=== PATIENT | male | born 1950 | race Caucasian/White ===

== ENCOUNTER 2020-08-01 15:21 | Observation (INO) ==
[~2020-08-01 15:21] MED LIST: PNEUMOCOCCAL VACCINE (13 VALENT) 0.5 ML SYRINGE IM ONE
[2020-08-01 16:18] LABS: Basophils # 0.1 10*3/uL (0.0-0.2); Basophils % 0.5 % (0.0-0.8); Eosinophils # 0.1 10*3/uL (0.0-0.87); Eosinophils % 0.6 % (0.00-10.9); Hematocrit 50.6 VOL% (42.0-52.0); Hemoglobin 16.7 GM/DL (14.0-18.0); Immature Granulocytes % 1.2 %; Immature Granulocytes Absolute 0.11 #; Lymphocytes % 10.6 % (21.2-54.2); Mean Corpuscular Volume 96.7 FL (87-102); Mean Platelet Volume 10.2 FL (9.6-12.0); Monocytes % 9.1 % (1.7-12.7); Platelet Count 300 T/CUMM (130-400); Red Blood Count 5.23 MC/CUMM (3.8-5.5); Red Cell Distribution Width 12.7 % (9.3-17.3); White Blood Count 9.3 T/CUMM (4-12)
[2020-08-01] MEDS ORDERED: ALBUTEROL/IPRATROPIUM 3 ML NEB RESP TX STA (16:18)
[2020-08-01] MEDS ORDERED: methylPREDNISolone SOD SUC 125 MG/2 ML VIAL IV STA (16:18)
[2020-08-01] MEDS ORDERED: SODIUM CHLORIDE 0.9% 500 ML IV STA (16:18)
[2020-08-01] MEDS ORDERED: PIPERACILLIN/TAZOBACTAM 3,375 MG in SODIUM CHLORIDE 0.9% 100 ML IV STA (16:18)
[2020-08-01 16:38] LABS: Albumin 3.4 G/DL (3.4-5.0); Bilirubin,Total 1.4 MG/DL (0.2-1.0); Calcium 9.7 MG/DL (8.5-10.1); Osmolality,Calculated 269.1 MOS/KG (273-304); Total Protein 8.3 G/DL (6.4-8.3)
[2020-08-01 16:52] LABS: Bilirubin,Urine Negative (Negative); Blood, Urine Small mg/dL (Negative); Glucose,Urine (UA) Negative (Negative); Ketones,Urine Negative (Negative); Nitrite,Urine Negative (Negative); Protein,Urine Negative; RBC,Urine 1 /HPF (0-4); Urine Appearance CLEAR (Clear); Urine Color Straw (Yellow); Urine Specific Gravity 1.004 (1.001-1.035); Urine Urobilinogen < 2.0 EU/DL (0.2-1.0)
[2020-08-02] MEDS: PIPERACILLIN/TAZOBACTAM 3,375 MG in SODIUM CHLORIDE 0.9% 100 ML IV SCH ×3 (02:50→17:37)
[2020-08-02 08:47] LABS: Lymphocytes,Pleural Fluid 97 %; Monocytes,Pleural Fluid 2 %; Neutrophils,Pleural Fluid 1 %
[2020-08-02 08:50] LABS: RBC,Pleural Fluid 4923 T/CUMM
[2020-08-02 08:54] LABS: Glucose,Pleural Fluid 124 MG/DL; LDH,Body Fluid 360 U/L; Total Protein,Body Fluid 5.2 G/DL; Triglycerides,Body Fluid < 8 MG/DL
[2020-08-02] MEDS: THIAMINE 100 MG TABLET PO SCH (09:17)
[2020-08-02] MEDS: MULTIVITAMIN (CENTRUM) TABLET PO SCH (09:17)
[2020-08-02] MEDS ORDERED: INFLUENZA VIRUS VACCINE 0.5 ML SYRINGE IM ONE (09:30)
[2020-08-02] MEDS: FOLIC ACID 1 MG TABLET PO SCH (09:36)
[2020-08-02] MEDS: LORazepam 2 MG/1 ML VIAL IV PRN (22:56)
[2020-08-03] MEDS: PIPERACILLIN/TAZOBACTAM 3,375 MG in SODIUM CHLORIDE 0.9% 100 ML IV SCH ×2 (02:36→09:31)
[2020-08-03 05:43] LABS: Basophils % 0.5 % (0.0-0.8); Eosinophils # 0.1 10*3/uL (0.0-0.87); Eosinophils % 0.9 % (0.00-10.9); Hematocrit 45.5 VOL% (42.0-52.0); Immature Granulocytes % 1.1 %; Immature Granulocytes Absolute 0.08 #; Lymphocytes # 0.9 10*3/uL (1.4-4.0); Lymphocytes % 11.4 % (21.2-54.2); Mean Corpuscular Volume 95.6 FL (87-102); Monocytes % 9.7 % (1.7-12.7); Neutrophils % 76.4 % (38.7-73.9); Platelet Count 287 T/CUMM (130-400); Red Blood Count 4.76 MC/CUMM (3.8-5.5); Red Cell Distribution Width 12.5 % (9.3-17.3); White Blood Count 7.5 T/CUMM (4-12)
[2020-08-03 05:55] LABS: Calcium 8.8 MG/DL (8.5-10.1); Osmolality,Calculated 274.8 MOS/KG (273-304)
[2020-08-03] MEDS: LORazepam 2 MG/1 ML VIAL IV PRN ×2 (09:30→21:46)
[2020-08-03] MEDS: MULTIVITAMIN (CENTRUM) TABLET PO SCH (09:31)
[2020-08-03] MEDS: FOLIC ACID 1 MG TABLET PO SCH (09:31)
[2020-08-03] MEDS: THIAMINE 100 MG TABLET PO SCH (09:31)
[2020-08-03] MEDS: cefTRIAXone 1,000 MG in SYRINGE 1 EACH IV SCH (12:15)
[2020-08-03] MEDS: DOCUSATE SODIUM 100 MG CAPSULE PO SCH (12:21)
[2020-08-03] MEDS: AZITHROMYCIN 250 MG TABLET PO SCH (12:21)
[2020-08-03] MEDS: HYDROcodone/HOMATROPINE 5 ML UDCUP PO PRN (19:16)
[2020-08-04 05:52] LABS: Basophils # 0.1 10*3/uL (0.0-0.2); Basophils % 0.6 % (0.0-0.8); Eosinophils # 0.1 10*3/uL (0.0-0.87); Eosinophils % 1.4 % (0.00-10.9); Hematocrit 43.9 VOL% (42.0-52.0); Hemoglobin 14.5 GM/DL (14.0-18.0); Immature Granulocytes % 1.1 %; Mean Corpuscular Volume 96.1 FL (87-102); Mean Platelet Volume 10.1 FL (9.6-12.0); Monocytes % 10.8 % (1.7-12.7); Neutrophils % 75.1 % (38.7-73.9); Platelet Count 259 T/CUMM (130-400); Red Blood Count 4.57 MC/CUMM (3.8-5.5); Red Cell Distribution Width 12.4 % (9.3-17.3); White Blood Count 8.7 T/CUMM (4-12)
[2020-08-04 06:48] LABS: Calcium 8.7 MG/DL (8.5-10.1); Osmolality,Calculated 271.8 MOS/KG (273-304)
[2020-08-04 07:21] LABS: Hepatitis B Core IgM Quant 0.18 Index; Hepatitis B Surface Ag Quant < 0.10 Index; Hepatitis B Surface Ag Result Negative (Negative); Hepatitis C Virus Ab Quant 0.06 Index; Hepatitis C Virus Ab Result Negative (Negative)
[2020-08-04] MEDS: cefTRIAXone 1,000 MG in SYRINGE 1 EACH IV SCH (09:11)
[2020-08-04] MEDS ORDERED: fentaNYL 100 MCG/2 ML VIAL ONE (10:16)
[2020-08-04] MEDS ORDERED: KETAMINE 500 MG/10 ML VIAL ONE (10:16)
[2020-08-04] MEDS ORDERED: MIDAZOLAM 2 MG/2 ML VIAL ONE (10:16)
[2020-08-04] MEDS ORDERED: LIDOCAINE 1%/EPI INJ 20 ML VIAL ONE (10:45)
[2020-08-04] MEDS ORDERED: TISSUE ADHESIVE 1 EACH APPLICATOR TOP ONE (11:21)
[2020-08-04] MEDS ORDERED: ETOMIDATE 40 MG/20 ML VIAL IV ONE (11:21)
[2020-08-04] MEDS ORDERED: LIDOCAINE 2% 5 ML VIAL ONE (11:21)
[2020-08-04] MEDS ORDERED: propofoL 200 MG/20 ML VIAL IV ONE (11:21)
[2020-08-04] MEDS: AZITHROMYCIN 250 MG TABLET PO SCH (12:49)
[2020-08-04] MEDS: MULTIVITAMIN (CENTRUM) TABLET PO SCH (12:49)
[2020-08-04] MEDS: THIAMINE 100 MG TABLET PO SCH (12:49)
[2020-08-04] MEDS: FOLIC ACID 1 MG TABLET PO SCH (12:50)
[2020-08-04] MEDS: DOCUSATE SODIUM 100 MG CAPSULE PO SCH (12:50)
[2020-08-04] MEDS: HYDROcodone/HOMATROPINE 5 ML UDCUP PO PRN ×2 (18:54→22:51)
[2020-08-05 04:46] LABS: Basophils % 0.5 % (0.0-0.8); Eosinophils # 0.1 10*3/uL (0.0-0.87); Eosinophils % 1.3 % (0.00-10.9); Hematocrit 46.4 VOL% (42.0-52.0); Hemoglobin 14.8 GM/DL (14.0-18.0); Immature Granulocytes % 0.8 %; Immature Granulocytes Absolute 0.07 #; Lymphocytes # 0.9 10*3/uL (1.4-4.0); Lymphocytes % 10.2 % (21.2-54.2); Mean Corpuscular HGB Conc 31.9 GM/DL (32-36); Mean Corpuscular Volume 97.3 FL (87-102); Mean Platelet Volume 10.1 FL (9.6-12.0); Monocytes % 9.2 % (1.7-12.7); Platelet Count 293 T/CUMM (130-400); Red Blood Count 4.77 MC/CUMM (3.8-5.5); Red Cell Distribution Width 12.5 % (9.3-17.3); White Blood Count 8.5 T/CUMM (4-12)
[2020-08-05 05:08] LABS: Calcium 8.7 MG/DL (8.5-10.1); Osmolality,Calculated 272.8 MOS/KG (273-304)
[2020-08-05 08:19] VITALS: BP 127/92
[2020-08-05] MEDS: AZITHROMYCIN 250 MG TABLET PO SCH (08:31)
[2020-08-05] MEDS: THIAMINE 100 MG TABLET PO SCH (08:32)
[2020-08-05] MEDS: MULTIVITAMIN (CENTRUM) TABLET PO SCH (08:32)
[2020-08-05] MEDS: DOCUSATE SODIUM 100 MG CAPSULE PO SCH (08:32)
[2020-08-05] MEDS: FOLIC ACID 1 MG TABLET PO SCH (08:32)
[2020-08-05] MEDS: cefTRIAXone 1,000 MG in SYRINGE 1 EACH IV SCH (08:41)
== END 2020-08-05 10:59 | disposition home or self-care (01) ==
LOC: N.ED 15:21 → N.EDINP 15:21 → SUATTDRO 20:44 → N.5E 21:04
PROVIDERS: ADMIT Hospitalist; ATTEND Family Medicine

== ENCOUNTER 2020-08-15 18:42 | Inpatient (IN) ==
[2020-08-15] MEDS ORDERED: ACETAMINOPHEN 500 MG TABLET PO STA (19:31)
[2020-08-15] MEDS ORDERED: PIPERACILLIN/TAZOBACTAM 3,375 MG in SODIUM CHLORIDE 0.9% 100 ML IV STA (19:31)
[2020-08-15 19:54] LABS: Basophils % 0.1 % (0.0-0.8); Eosinophils % 0.2 % (0.00-10.9); Hematocrit 47.2 VOL% (42.0-52.0); Hemoglobin 15.7 GM/DL (14.0-18.0); Immature Granulocytes % 0.6 %; Lymphocytes # 0.2 10*3/uL (1.4-4.0); Lymphocytes % 1.3 % (21.2-54.2); Mean Corpuscular HGB Conc 33.3 GM/DL (32-36); Mean Corpuscular Volume 93.8 FL (87-102); Monocytes % 4.8 % (1.7-12.7); Platelet Count 347 T/CUMM (130-400); Red Blood Count 5.03 MC/CUMM (3.8-5.5); Red Cell Distribution Width 12.8 % (9.3-17.3); White Blood Count 16.3 T/CUMM (4-12)
[2020-08-15 20:03] LABS: INR 1.1; PT Patient Result 11.6 SECS (9.8-11.9)
[2020-08-15 20:21] LABS: Lymphocytes 1 % (20-55); Platelet Estimate Adequate; Segmented Neutrophils 95 % (50-85); Total Cells Counted 100
[2020-08-15] MEDS ORDERED: ALBUTEROL/IPRATROPIUM 3 ML NEB RESP TX STA (20:23)
[2020-08-15 20:25] LABS: Albumin 2.7 G/DL (3.4-5.0); Calcium 9.3 MG/DL (8.5-10.1); Osmolality,Calculated 271.1 MOS/KG (273-304); Total Protein 7.5 G/DL (6.4-8.3)
[2020-08-16] MEDS ORDERED: ALBUTEROL/IPRATROPIUM 3 ML NEB RESP TX PRN (00:23)
[2020-08-16] MEDS ORDERED: DEXTROSE 50% 25 GM/50 ML VIAL IV PRN (01:30)
[2020-08-16] MEDS ORDERED: ACETAMINOPHEN 325 MG TABLET PO PRN (01:30)
[2020-08-16] MEDS ORDERED: GLUCAGON 1 MG VIAL IM PRN (01:30)
[2020-08-16] MEDS ORDERED: ONDANSETRON 4 MG/2 ML VIAL IV PRN (01:30)
[2020-08-16] MEDS ORDERED: DOCUSATE SODIUM 100 MG CAPSULE PO PRN (01:37)
[2020-08-16] MEDS: PIPERACILLIN/TAZOBACTAM 3,375 MG in SODIUM CHLORIDE 0.9% 100 ML IV SCH ×3 (03:25→23:11)
[2020-08-16] MEDS ORDERED: DIGOXIN 0.5 MG/2 ML AMP IV ONE ×2 (05:04→11:05)
[2020-08-16 06:34] LABS: Basophils % 0.1 % (0.0-0.8); Eosinophils % 0.2 % (0.00-10.9); Hematocrit 47.7 VOL% (42.0-52.0); Hemoglobin 15.4 GM/DL (14.0-18.0); Immature Granulocytes % 0.7 %; Immature Granulocytes Absolute 0.09 #; Lymphocytes # 0.2 10*3/uL (1.4-4.0); Lymphocytes % 1.6 % (21.2-54.2); Mean Corpuscular HGB Conc 32.3 GM/DL (32-36); Mean Corpuscular Volume 96.4 FL (87-102); Mean Platelet Volume 10.5 FL (9.6-12.0); Monocytes % 5.2 % (1.7-12.7); Neutrophils % 92.2 % (38.7-73.9); Platelet Count 310 T/CUMM (130-400); Red Blood Count 4.95 MC/CUMM (3.8-5.5); Red Cell Distribution Width 12.8 % (9.3-17.3); White Blood Count 13.4 T/CUMM (4-12)
[2020-08-16 06:52] LABS: Albumin 2.5 G/DL (3.4-5.0); Bilirubin,Total 1.1 MG/DL (0.2-1.0); Calcium 9.3 MG/DL (8.5-10.1); Osmolality,Calculated 273.8 MOS/KG (273-304); Total Protein 7.2 G/DL (6.4-8.3)
[2020-08-16 07:02] LABS: Hypochromasia 1+; Lymphocytes 1 % (20-55); Microcytosis Slight; Segmented Neutrophils 92 % (50-85); Total Cells Counted 100
[2020-08-16 07:03] LABS: Platelet Estimate Normal
[2020-08-16] MEDS: ALPRAZolam 0.5 MG TABLET PO SCH ×3 (08:54→23:10)
[2020-08-16] MEDS: methylPREDNISolone SOD SUC 40 MG/1 ML VIAL IV SCH ×2 (10:20→23:10)
[2020-08-16] MEDS: LEVOFLOXACIN INJ 750 MG in PREMIX 1 EACH IV SCH (10:21)
[2020-08-16] MEDS: MULTIVITAMIN (CENTRUM) TABLET PO SCH (10:32)
[2020-08-16] MEDS: allopurinoL 100 MG TABLET PO SCH (10:32)
[2020-08-16] MEDS: FOLIC ACID 1 MG TABLET PO SCH (10:32)
[2020-08-16] MEDS: THIAMINE 100 MG TABLET PO SCH (10:32)
[2020-08-16] MEDS: METOPROLOL TARTRATE 25 MG TABLET PO SCH ×2 (10:33→23:11)
[2020-08-16] MEDS: ASCORBIC ACID 500 MG TABLET PO SCH ×2 (12:01→23:11)
[2020-08-16] MEDS: ASPIRIN EC 81 MG TABLET PO SCH (15:59)
[2020-08-17] MEDS: PIPERACILLIN/TAZOBACTAM 3,375 MG in SODIUM CHLORIDE 0.9% 100 ML IV SCH ×3 (04:33→21:20)
[2020-08-17 05:40] LABS: Basophils % 0.2 % (0.0-0.8); Eosinophils % 0.1 % (0.00-10.9); Hematocrit 43.8 VOL% (42.0-52.0); Immature Granulocytes % 1.1 %; Immature Granulocytes Absolute 0.17 #; Lymphocytes # 0.1 10*3/uL (1.4-4.0); Lymphocytes % 0.9 % (21.2-54.2); Mean Corpuscular Volume 96.9 FL (87-102); Mean Platelet Volume 10.3 FL (9.6-12.0); Monocytes % 6.6 % (1.7-12.7); Neutrophils % 91.1 % (38.7-73.9); Platelet Count 323 T/CUMM (130-400); Red Blood Count 4.52 MC/CUMM (3.8-5.5); Red Cell Distribution Width 12.7 % (9.3-17.3); White Blood Count 15.7 T/CUMM (4-12)
[2020-08-17 06:03] LABS: Albumin 2.1 G/DL (3.4-5.0); Bilirubin,Total 0.8 MG/DL (0.2-1.0); Osmolality,Calculated 275.8 MOS/KG (273-304); Total Protein 6.6 G/DL (6.4-8.3)
[2020-08-17 06:09] LABS: Lymphocytes 1 % (20-55); Platelet Estimate Adequate; Segmented Neutrophils 94 % (50-85); Total Cells Counted 100
[2020-08-17] MEDS: ASCORBIC ACID 500 MG TABLET PO SCH ×2 (08:59→21:21)
[2020-08-17] MEDS: ALPRAZolam 0.5 MG TABLET PO SCH ×3 (08:59→21:22)
[2020-08-17] MEDS: FOLIC ACID 1 MG TABLET PO SCH (08:59)
[2020-08-17] MEDS: allopurinoL 100 MG TABLET PO SCH (09:00)
[2020-08-17] MEDS: MULTIVITAMIN (CENTRUM) TABLET PO SCH (09:00)
[2020-08-17] MEDS: THIAMINE 100 MG TABLET PO SCH (09:00)
[2020-08-17] MEDS: methylPREDNISolone SOD SUC 40 MG/1 ML VIAL IV SCH ×2 (09:00→21:21)
[2020-08-17] MEDS: METOPROLOL TARTRATE 25 MG TABLET PO SCH ×2 (09:00→21:22)
[2020-08-17] MEDS: ASPIRIN EC 81 MG TABLET PO SCH (09:00)
[2020-08-17] MEDS: LEVOFLOXACIN INJ 750 MG in PREMIX 1 EACH IV SCH (09:03)
[2020-08-17] MEDS ORDERED: FUROSEMIDE 40 MG/4 ML VIAL IV ONE (17:23)
[2020-08-18] MEDS: PIPERACILLIN/TAZOBACTAM 3,375 MG in SODIUM CHLORIDE 0.9% 100 ML IV SCH ×3 (03:15→20:17)
[2020-08-18] MEDS: ALPRAZolam 0.5 MG TABLET PO SCH ×3 (09:11→20:09)
[2020-08-18] MEDS: LEVOFLOXACIN INJ 750 MG in PREMIX 1 EACH IV SCH (09:12)
[2020-08-18] MEDS: methylPREDNISolone SOD SUC 40 MG/1 ML VIAL IV SCH ×2 (09:13→20:23)
[2020-08-18] MEDS: allopurinoL 100 MG TABLET PO SCH (09:14)
[2020-08-18] MEDS: METOPROLOL TARTRATE 25 MG TABLET PO SCH ×2 (09:14→20:10)
[2020-08-18] MEDS: FOLIC ACID 1 MG TABLET PO SCH (09:15)
[2020-08-18] MEDS: ASPIRIN EC 81 MG TABLET PO SCH (09:15)
[2020-08-18] MEDS: THIAMINE 100 MG TABLET PO SCH (09:15)
[2020-08-18] MEDS: MULTIVITAMIN (CENTRUM) TABLET PO SCH (09:15)
[2020-08-18] MEDS: ASCORBIC ACID 500 MG TABLET PO SCH ×2 (09:15→20:11)
[2020-08-18] MEDS ORDERED: BENZONATATE 100 MG CAPSULE PO PRN (14:35)
[2020-08-18] MEDS ORDERED: MIDAZOLAM 2 MG/2 ML VIAL IV ONE (15:31)
[2020-08-18] MEDS ORDERED: fentaNYL 100 MCG/2 ML VIAL IV ONE (15:31)
[2020-08-19] MEDS: PIPERACILLIN/TAZOBACTAM 3,375 MG in SODIUM CHLORIDE 0.9% 100 ML IV SCH ×2 (04:02→11:45)
[2020-08-19] MEDS ORDERED: SODIUM CHLORIDE 0.45% 1,000 ML IV SCH (08:30)
[2020-08-19] MEDS ORDERED: ceFAZolin 1,000 MG in SYRINGE 1 EACH IV ONE (08:30)
[2020-08-19] MEDS ORDERED: DIAZEPAM 5 MG TABLET PO ONE (08:30)
[2020-08-19] MEDS: LEVOFLOXACIN INJ 750 MG in PREMIX 1 EACH IV SCH (08:48)
[2020-08-19] MEDS: methylPREDNISolone SOD SUC 40 MG/1 ML VIAL IV SCH (08:49)
[2020-08-19] MEDS ORDERED: MIDAZOLAM 2 MG/2 ML VIAL ONE (09:36)
[2020-08-19] MEDS ORDERED: fentaNYL 100 MCG/2 ML VIAL ONE (09:36)
[2020-08-19] MEDS: METOPROLOL TARTRATE 25 MG TABLET PO SCH (09:51)
[2020-08-19] MEDS: ALPRAZolam 0.5 MG TABLET PO SCH (09:52)
[2020-08-19] MEDS: ASCORBIC ACID 500 MG TABLET PO SCH (09:52)
[2020-08-19] MEDS ORDERED: TISSUE ADHESIVE 1 EACH APPLICATOR TOP ONE (10:29)
[2020-08-19] MEDS: FOLIC ACID 1 MG TABLET PO SCH (11:44)
[2020-08-19] MEDS: ASPIRIN EC 81 MG TABLET PO SCH (11:44)
[2020-08-19] MEDS: allopurinoL 100 MG TABLET PO SCH (11:44)
[2020-08-19] MEDS: MULTIVITAMIN (CENTRUM) TABLET PO SCH (11:44)
[2020-08-19] MEDS: THIAMINE 100 MG TABLET PO SCH (11:44)
[2020-08-19 12:03] VITALS: BP 140/84
== END 2020-08-19 14:50 | disposition home or self-care (01) | DRG 840 ==
LOC: N.ED 18:42 → N.EDINP 23:07 → N.TELEN 23:20
PROVIDERS: ADMIT Internal Medicine; ATTEND Internal Medicine

== ENCOUNTER 2021-07-16 22:20 | Inpatient (IN) ==
[2021-07-16 22:50] LABS: Basophils % 0.2 % (0.0-0.8); Eosinophils # 0.2 10*3/uL (0.0-0.87); Hematocrit 40.6 VOL% (42.0-52.0); Hemoglobin 12.9 GM/DL (14.0-18.0); Immature Granulocytes % 4.5 %; Immature Granulocytes Absolute 0.18 #; Lymphocytes # 0.6 10*3/uL (1.4-4.0); Lymphocytes % 14.7 % (21.2-54.2); Mean Corpuscular HGB Conc 31.8 GM/DL (32-36); Mean Corpuscular Volume 91.2 FL (87-102); Mean Platelet Volume 9.4 FL (9.6-12.0); Monocytes % 10.5 % (1.7-12.7); Neutrophils % 65.1 % (38.7-73.9); Platelet Count 182 T/CUMM (130-400); Red Blood Count 4.45 MC/CUMM (3.8-5.5); Red Cell Distribution Width 13.3 % (9.3-17.3)
[2021-07-16 23:04] LABS: Albumin 3.5 G/DL (3.4-5.0); Bilirubin,Total 0.6 MG/DL (0.20-1.00); Calcium 9.3 MG/DL (8.5-10.1); Osmolality,Calculated 267.4 MOS/KG (273-304); Potassium 4.2 MMOL/L (3.5-5.1); Total Protein 6.4 G/DL (6.4-8.2)
[2021-07-16] MEDS ORDERED: VANCOMYCIN INJ 1,500 MG in SODIUM CHLORIDE 0.9% 500 ML IV STA (23:38)
[2021-07-16] MEDS ORDERED: CEFEPIME 2,000 MG in SODIUM CHLORIDE 0.9% 100 ML IV STA (23:38)
[2021-07-17] MEDS ORDERED: SODIUM CHLORIDE 0.9% 500 ML IV STA (00:26)
[2021-07-17 01:03] LABS: Bilirubin,Urine Negative (Negative); Blood, Urine Negative (Negative); Glucose,Urine (UA) Negative (Negative); Ketones,Urine Negative (Negative); Nitrite,Urine Negative (Negative); Protein,Urine Negative; RBC,Urine <1 /HPF (0-4); Urine Appearance CLEAR (Clear); Urine Color Straw (Yellow); Urine Specific Gravity 1.031 (1.001-1.035); Urine Urobilinogen < 2.0 EU/DL (0.2-1.0)
[2021-07-17] MEDS ORDERED: GLUCAGON 1 MG VIAL IM PRN (01:41)
[2021-07-17] MEDS ORDERED: ONDANSETRON 4 MG/2 ML VIAL IV PRN (01:41)
[2021-07-17] MEDS ORDERED: DEXTROSE 50% 25 GM/50 ML VIAL IV PRN (01:41)
[2021-07-17 01:58] LABS: Band Neutrophils 4 % (0-10); Eosinophils 6 % (0-10); Lymphocytes 12 % (20-55); Segmented Neutrophils 69 % (50-85)
[2021-07-17 01:59] LABS: Hypochromasia 1+; Ovalocytes 1+; Platelet Estimate Normal
[2021-07-17 02:00] LABS: Total Cells Counted 100
[2021-07-17 02:45] LABS: Basophils % 0.4 % (0.0-0.8); Eosinophils # 0.1 10*3/uL (0.0-0.87); Eosinophils % 4.6 % (0.00-10.9); Hemoglobin 12.2 GM/DL (14.0-18.0); Immature Granulocytes % 2.3 %; Immature Granulocytes Absolute 0.06 #; Lymphocytes # 0.5 10*3/uL (1.4-4.0); Lymphocytes % 19.8 % (21.2-54.2); Mean Corpuscular HGB Conc 32.1 GM/DL (32-36); Mean Corpuscular Volume 91.8 FL (87-102); Mean Platelet Volume 10.3 FL (9.6-12.0); Monocytes % 9.1 % (1.7-12.7); Neutrophils % 63.8 % (38.7-73.9); Platelet Count 184 T/CUMM (130-400); Red Blood Count 4.14 MC/CUMM (3.8-5.5); Red Cell Distribution Width 13.3 % (9.3-17.3); White Blood Count 2.6 T/CUMM (4-12)
[2021-07-17 03:19] LABS: Calcium 8.1 MG/DL (8.5-10.1); Osmolality,Calculated 268.1 MOS/KG (273-304); Potassium 5.4 MMOL/L (3.5-5.1)
[2021-07-17 03:36] LABS: Band Neutrophils 2 % (0-10); Eosinophils 4 % (0-10); Lymphocytes 17 % (20-55); Platelet Estimate Adequate; Segmented Neutrophils 73 % (50-85); Total Cells Counted 100
[2021-07-17 03:37] LABS: Hypochromasia Slight; Microcytosis Slight
[2021-07-17] MEDS: FLUCONAZOLE INJ 200 MG/100 ML PREMIX IV SCH (05:45)
[2021-07-17] MEDS ORDERED: FUROSEMIDE 40 MG/4 ML VIAL IV ONE (09:00)
[2021-07-17] MEDS: PANTOPRAZOLE 40 MG TABLET PO SCH (09:15)
[2021-07-17] MEDS: CEFEPIME 1,000 MG in SODIUM CHLORIDE 0.9% 100 ML IV SCH ×2 (09:15→21:07)
[2021-07-17] MEDS: VANCOMYCIN INJ 1,500 MG in SODIUM CHLORIDE 0.9% 500 ML IV SCH (13:56)
[2021-07-17] MEDS ORDERED: oxyCODONE IR 5 MG TABLET PO PRN (17:12)
[2021-07-17] MEDS ORDERED: BENZONATATE 100 MG CAPSULE PO PRN (17:12)
[2021-07-17] MEDS: GABAPENTIN 300 MG CAPSULE PO SCH (20:55)
[2021-07-17] MEDS: ACETAMINOPHEN 325 MG TABLET PO PRN (21:05)
[2021-07-17] MEDS: fentaNYL 25 MCG/HR PATCH TRANSDERM SCH (21:07)
[2021-07-17] MEDS: metroNIDAZOLE INJ 500 MG/100 ML PREMIX IV SCH (23:33)
[2021-07-18] MEDS: VANCOMYCIN INJ 1,500 MG in SODIUM CHLORIDE 0.9% 500 ML IV SCH ×2 (01:22→16:06)
[2021-07-18] MEDS ORDERED: FUROSEMIDE 20 MG/2 ML VIAL IV ONE ×2 (02:40→16:30)
[2021-07-18] MEDS: CEFEPIME 1,000 MG in SODIUM CHLORIDE 0.9% 100 ML IV SCH ×3 (05:23→16:06)
[2021-07-18] MEDS: FLUCONAZOLE INJ 200 MG/100 ML PREMIX IV SCH (05:23)
[2021-07-18] MEDS: metroNIDAZOLE INJ 500 MG/100 ML PREMIX IV SCH ×2 (05:24→15:30)
[2021-07-18 06:49] LABS: Basophils % 0.5 % (0.0-0.8); Eosinophils # 0.2 10*3/uL (0.0-0.87); Eosinophils % 4.7 % (0.00-10.9); Hematocrit 39.4 VOL% (42.0-52.0); Hemoglobin 12.5 GM/DL (14.0-18.0); Immature Granulocytes % 4.4 %; Immature Granulocytes Absolute 0.18 #; Lymphocytes # 0.5 10*3/uL (1.4-4.0); Lymphocytes % 13.3 % (21.2-54.2); Mean Corpuscular HGB Conc 31.7 GM/DL (32-36); Mean Corpuscular Volume 91.4 FL (87-102); Mean Platelet Volume 9.7 FL (9.6-12.0); Monocytes % 10.6 % (1.7-12.7); Neutrophils % 66.5 % (38.7-73.9); Platelet Count 180 T/CUMM (130-400); Red Blood Count 4.31 MC/CUMM (3.8-5.5); Red Cell Distribution Width 13.3 % (9.3-17.3); White Blood Count 4.1 T/CUMM (4-12)
[2021-07-18 07:11] LABS: Band Neutrophils 1 % (0-10); Eosinophils 3 % (0-10); Lymphocytes 13 % (20-55); Platelet Estimate Adequate; Segmented Neutrophils 75 % (50-85); Total Cells Counted 100
[2021-07-18 07:24] LABS: Calcium 8.8 MG/DL (8.5-10.1); Osmolality,Calculated 271.8 MOS/KG (273-304); Potassium 3.5 MMOL/L (3.5-5.1)
[2021-07-18] MEDS: GABAPENTIN 300 MG CAPSULE PO SCH ×2 (09:44→20:54)
[2021-07-18] MEDS: PANTOPRAZOLE 40 MG TABLET PO SCH (09:45)
[2021-07-18] MEDS: DOCUSATE SODIUM 100 MG CAPSULE PO SCH (09:45)
[2021-07-18] MEDS: CHOLECALCIFEROL 1,000 UNIT TABLET PO SCH (09:46)
[2021-07-18] MEDS: valACYclovir 500 MG TABLET PO SCH (09:46)
[2021-07-18] MEDS: MULTIVITAMIN (CENTRUM) TABLET PO SCH (09:46)
[2021-07-18] MEDS: METOPROLOL TARTRATE 25 MG TABLET PO SCH (09:47)
[2021-07-18 10:39] LABS: INR 1.1; PT Patient Result 12.4 SECS (10.5-12.0)
[2021-07-18] MEDS: ASPIRIN EC 81 MG TABLET PO SCH (13:38)
[2021-07-18] MEDS: FUROSEMIDE 20 MG/2 ML VIAL IV PRN (16:22)
[2021-07-18] MEDS: ACETAMINOPHEN 325 MG TABLET PO PRN (19:44)
[2021-07-18] MEDS: cefTRIAXone 2,000 MG in SODIUM CHLORIDE 0.9% 100 ML IV SCH (20:54)
[2021-07-18] MEDS: SULFAMETHOX/TRIMETHOPRIM 800-160 MG TABLET PO SCH (20:54)
[2021-07-19] MEDS: FLUCONAZOLE INJ 200 MG/100 ML PREMIX IV SCH (02:37)
[2021-07-19] MEDS: FUROSEMIDE 20 MG/2 ML VIAL IV PRN (04:20)
[2021-07-19 06:11] LABS: Basophils % 0.5 % (0.0-0.8); Eosinophils # 0.2 10*3/uL (0.0-0.87); Hematocrit 40.9 VOL% (42.0-52.0); Hemoglobin 13.1 GM/DL (14.0-18.0); Immature Granulocytes % 3.1 %; Immature Granulocytes Absolute 0.12 #; Lymphocytes # 0.8 10*3/uL (1.4-4.0); Lymphocytes % 19.6 % (21.2-54.2); Mean Corpuscular Volume 93.2 FL (87-102); Mean Platelet Volume 9.9 FL (9.6-12.0); Monocytes % 10.5 % (1.7-12.7); Neutrophils % 61.3 % (38.7-73.9); Platelet Count 199 T/CUMM (130-400); Red Blood Count 4.39 MC/CUMM (3.8-5.5); Red Cell Distribution Width 13.5 % (9.3-17.3); White Blood Count 3.8 T/CUMM (4-12)
[2021-07-19 06:23] LABS: Calcium 9.1 MG/DL (8.5-10.1); Osmolality,Calculated 271.8 MOS/KG (273-304); Potassium 3.5 MMOL/L (3.5-5.1)
[2021-07-19] MEDS: MULTIVITAMIN (CENTRUM) TABLET PO SCH (08:06)
[2021-07-19] MEDS: ASPIRIN EC 81 MG TABLET PO SCH (08:06)
[2021-07-19] MEDS: DOCUSATE SODIUM 100 MG CAPSULE PO SCH (08:06)
[2021-07-19] MEDS: GABAPENTIN 300 MG CAPSULE PO SCH ×2 (08:07→19:37)
[2021-07-19] MEDS: CHOLECALCIFEROL 1,000 UNIT TABLET PO SCH (08:07)
[2021-07-19] MEDS: METOPROLOL TARTRATE 25 MG TABLET PO SCH (08:07)
[2021-07-19] MEDS: valACYclovir 500 MG TABLET PO SCH (08:07)
[2021-07-19] MEDS: SULFAMETHOX/TRIMETHOPRIM 800-160 MG TABLET PO SCH ×2 (08:08→19:37)
[2021-07-19] MEDS: PANTOPRAZOLE 40 MG TABLET PO SCH (08:08)
[2021-07-19] MEDS ORDERED: DOXYCYCLINE HYCLATE INJ 200 MG, LIDOCAINE 1% INJ 20 ML in STERILE WATER INJ 30 ML INTRAPLEUR ONE (08:15)
[2021-07-19] MEDS ORDERED: DIAZEPAM 5 MG TABLET PO ONE (11:00)
[2021-07-19] MEDS ORDERED: FAMOTIDINE 20 MG TABLET PO ONE (11:01)
[2021-07-19] MEDS ORDERED: LIDOCAINE 1% 5 ML VIAL ONE (11:42)
[2021-07-19] MEDS ORDERED: DEXMEDETOMIDINE 200 MCG/2 ML VIAL ONE (11:42)
[2021-07-19] MEDS ORDERED: ROPIVACAINE 0.5% 30 ML VIAL ONE (11:43)
[2021-07-19] MEDS ORDERED: TALC INTRAPLEURAL POWDER 3 GM VIAL INTRAPLEUR ONE (12:15)
[2021-07-19] MEDS ORDERED: LACTATED RINGERS 1,000 ML IV SCH (12:30)
[2021-07-19] MEDS ORDERED: ETOMIDATE 40 MG/20 ML VIAL IV ONE (13:00)
[2021-07-19] MEDS ORDERED: SEVOFLURANE 1 UNIT/15 MINUTE INH ONE ×2 (13:00→14:21)
[2021-07-19] MEDS ORDERED: propofoL 200 MG/20 ML VIAL IV ONE (13:00)
[2021-07-19] MEDS ORDERED: ROCURONIUM 50 MG/5 ML VIAL IV ONE ×2 (13:00→13:02)
[2021-07-19] MEDS ORDERED: LIDOCAINE 2% 5 ML VIAL ONE (13:00)
[2021-07-19] MEDS ORDERED: PHENYLEPHRINE 1 MG/10 ML SYRINGE IV ONE ×2 (13:03→13:10)
[2021-07-19] MEDS ORDERED: SUGAMMADEX 200 MG/2 ML VIAL IV ONE (13:42)
[2021-07-19] MEDS ORDERED: ONDANSETRON 4 MG/2 ML VIAL IV PRN (13:48)
[2021-07-19] MEDS ORDERED: HYDROmorphone 2 MG/1 ML VIAL IV PRN (13:48)
[2021-07-19] MEDS: DEXT 5% NACL 0.45% KCL 10 MEQ 10 MEQ/1,000 ML BAG IV SCH (15:33)
[2021-07-19] MEDS: HYDROmorphone 2 MG/1 ML VIAL IV PRN ×2 (15:56→19:38)
[2021-07-19] MEDS: cefTRIAXone 2,000 MG in SODIUM CHLORIDE 0.9% 100 ML IV SCH (19:37)
[2021-07-19] MEDS: ACETAMINOPHEN 325 MG TABLET PO PRN (19:38)
[2021-07-20] MEDS: DEXT 5% NACL 0.45% KCL 10 MEQ 10 MEQ/1,000 ML BAG IV SCH ×3 (00:50→17:22)
[2021-07-20 05:38] LABS: Basophils % 0.5 % (0.0-0.8); Eosinophils # 0.2 10*3/uL (0.0-0.87); Eosinophils % 4.5 % (0.00-10.9); Hematocrit 34.3 VOL% (42.0-52.0); Immature Granulocytes Absolute 0.09 #; Lymphocytes # 0.9 10*3/uL (1.4-4.0); Lymphocytes % 19.5 % (21.2-54.2); Mean Corpuscular HGB Conc 32.1 GM/DL (32-36); Mean Corpuscular Volume 91.7 FL (87-102); Mean Platelet Volume 9.7 FL (9.6-12.0); Monocytes % 14.1 % (1.7-12.7); Neutrophils % 59.4 % (38.7-73.9); Platelet Count 191 T/CUMM (130-400); Red Blood Count 3.74 MC/CUMM (3.8-5.5); Red Cell Distribution Width 13.6 % (9.3-17.3); White Blood Count 4.4 T/CUMM (4-12)
[2021-07-20 06:02] LABS: Calcium 7.9 MG/DL (8.5-10.1); Osmolality,Calculated 269.1 MOS/KG (273-304); Potassium 3.6 MMOL/L (3.5-5.1)
[2021-07-20 06:06] LABS: Calcium 8.1 MG/DL (8.5-10.1); Osmolality,Calculated 267.2 MOS/KG (273-304); Potassium 3.6 MMOL/L (3.5-5.1)
[2021-07-20] MEDS ORDERED: FUROSEMIDE 40 MG/4 ML VIAL IV ONE (07:48)
[2021-07-20] MEDS: ASPIRIN EC 81 MG TABLET PO SCH (08:58)
[2021-07-20] MEDS: valACYclovir 500 MG TABLET PO SCH (08:59)
[2021-07-20] MEDS: PANTOPRAZOLE 40 MG TABLET PO SCH (08:59)
[2021-07-20] MEDS: CHOLECALCIFEROL 1,000 UNIT TABLET PO SCH (08:59)
[2021-07-20] MEDS: MULTIVITAMIN (CENTRUM) TABLET PO SCH (08:59)
[2021-07-20] MEDS: GABAPENTIN 300 MG CAPSULE PO SCH ×2 (08:59→20:57)
[2021-07-20] MEDS: DOCUSATE SODIUM 100 MG CAPSULE PO SCH (08:59)
[2021-07-20] MEDS: SULFAMETHOX/TRIMETHOPRIM 800-160 MG TABLET PO SCH ×2 (08:59→20:57)
[2021-07-20] MEDS: METOPROLOL TARTRATE 25 MG TABLET PO SCH (08:59)
[2021-07-20] MEDS: fentaNYL 25 MCG/HR PATCH TRANSDERM SCH (09:00)
[2021-07-20] MEDS: ENOXAPARIN 40 MG/0.4 ML SYRINGE SUBCUT SCH (09:00)
[2021-07-20] MEDS ORDERED: BISACODYL 5 MG TABLET PO PRN (17:34)
[2021-07-20] MEDS: cefTRIAXone 2,000 MG in SODIUM CHLORIDE 0.9% 100 ML IV SCH (20:58)
[2021-07-21] MEDS: DEXT 5% NACL 0.45% KCL 10 MEQ 10 MEQ/1,000 ML BAG IV SCH (01:49)
[2021-07-21 05:58] LABS: Basophils % 0.5 % (0.0-0.8); Eosinophils # 0.3 10*3/uL (0.0-0.87); Eosinophils % 6.4 % (0.00-10.9); Hemoglobin 10.4 GM/DL (14.0-18.0); Immature Granulocytes % 1.5 %; Immature Granulocytes Absolute 0.06 #; Lymphocytes # 1.1 10*3/uL (1.4-4.0); Lymphocytes % 27.2 % (21.2-54.2); Mean Corpuscular HGB Conc 30.6 GM/DL (32-36); Mean Corpuscular Volume 93.4 FL (87-102); Monocytes % 16.2 % (1.7-12.7); Neutrophils % 48.2 % (38.7-73.9); Platelet Count 201 T/CUMM (130-400); Red Blood Count 3.64 MC/CUMM (3.8-5.5); Red Cell Distribution Width 13.7 % (9.3-17.3); White Blood Count 3.9 T/CUMM (4-12)
[2021-07-21 06:26] LABS: Calcium 8.4 MG/DL (8.5-10.1); Osmolality,Calculated 270.8 MOS/KG (273-304); Potassium 3.7 MMOL/L (3.5-5.1)
[2021-07-21 06:34] LABS: Band Neutrophils 3 % (0-10); Eosinophils 4 % (0-10); Lymphocytes 23 % (20-55); Platelet Estimate Normal; Segmented Neutrophils 48 % (50-85); Total Cells Counted 100
[2021-07-21] MEDS ORDERED: AMOXICILLIN/CLAV 875 MG TABLET PO SCH (08:00)
[2021-07-21] MEDS ORDERED: POLYETHYLENE GLYCOL POWDER 17 GM PACK PO SCH (09:00)
[2021-07-21] MEDS: CHOLECALCIFEROL 1,000 UNIT TABLET PO SCH (09:11)
[2021-07-21] MEDS: ASPIRIN EC 81 MG TABLET PO SCH (09:11)
[2021-07-21] MEDS: PANTOPRAZOLE 40 MG TABLET PO SCH (09:11)
[2021-07-21] MEDS: MULTIVITAMIN (CENTRUM) TABLET PO SCH (09:11)
[2021-07-21] MEDS: DOCUSATE SODIUM 100 MG CAPSULE PO SCH (09:11)
[2021-07-21] MEDS: GABAPENTIN 300 MG CAPSULE PO SCH (09:11)
[2021-07-21] MEDS: valACYclovir 500 MG TABLET PO SCH (09:11)
[2021-07-21] MEDS: SULFAMETHOX/TRIMETHOPRIM 800-160 MG TABLET PO SCH (09:12)
[2021-07-21] MEDS: ENOXAPARIN 40 MG/0.4 ML SYRINGE SUBCUT SCH (09:12)
[2021-07-21] MEDS: METOPROLOL TARTRATE 25 MG TABLET PO SCH (09:12)
[2021-07-21 11:16] LABS: Lymphocytes,Pleural Fluid 71 %; Monocytes,Pleural Fluid 17 %; Neutrophils,Pleural Fluid 12 %
[2021-07-21 11:19] LABS: RBC,Pleural Fluid 14341 T/CUMM
[2021-07-21 11:37] LABS: LDH,Pleural Fluid 567 U/L; Total Protein,Pleural Fluid 3.3 G/DL
[2021-07-21 12:49] VITALS: BP 100/59
== END 2021-07-21 14:02 | disposition home or self-care (01) | DRG 824 ==
LOC: N.ED 22:20 → N.EDINP 07-17 01:41 → SUATTDRO 07-17 01:41 → N.3E 07-17 02:19 → N.2W 07-17 22:34
PROVIDERS: ADMIT Internal Medicine; ATTEND Internal Medicine